=== PATIENT | male | born 1945 | race Two or more races ===

== ENCOUNTER → 2017-12-12 | Outpatient (CLI) | payer OTHER ==
[~2017-12-12] MED LIST: ALBU1.25 NEB; ALEN70TA5 PO; AMPH50VI INH; ASCO500T7 PO; ASPI-682 PO; ATOR40TA PO; AZIT250T89 PO; CALC-141 PO; CHOL2000 PO; MAGN500T PO; METH4TAB PO; METO25TA35 PO; MULT-257 PO; OMEP-110 PO; PRED5TAB PO; SULF-169 PO; TACR0.5C4 PO; TACR5CAP4 PO; iron sulfate PO
== END | disposition home or self-care (01) ==
LOC: CFH 14:53
PROVIDERS: ATTEND Nurse Practitioner
DX: J98.11 Atelectasis (principal); R91.8 Other nonspecific abnormal finding of lung field; Z94.2 Lung transplant status
CPT/HCPCS: 71250

== ENCOUNTER → 2018-01-05 | Outpatient (CLI) | payer OTHER | END | disposition home or self-care (01) | LOC: RAD 16:23 | PROVIDERS: ATTEND Registered Nurse | DX: M25.60 Stiffness of unspecified joint, not elsewhere classified (principal); M79.604 Pain in right leg; R60.0 Localized edema ==

== ENCOUNTER 2018-04-25 19:03 | Emergency (ER) | payer OTHER ==
[~2018-04-25] VITALS: Ht 170.2 cm; Wt 61.8 kg
[2018-04-25 19:33] LABS: BASOPHILS # (AUTO) 0.02 x10^3/uL (0-0.1); BASOPHILS % (AUTO) 0 % (0-1); EOSINOPHILS # (AUTO) 0.07 x10^3/uL (0-0.4); EOSINOPHILS % (AUTO) 1 % (1-7); LYMPHOCYTES % (AUTO) 21 % (22-44); MD NO; MEAN CORPUSCULAR HEMOGLOBIN 31.7 pg (27.5-34.5); MEAN CORPUSCULAR HGB CONC 33.9 g/dL (33.2-36.2); MEAN CORPUSCULAR VOLUME 93.3 fL (81-97); MEAN PLATELET VOLUME 8.9 fL (7.4-10.4); MONOCYTES # (AUTO) 0.64 x10^3/uL (0.2-0.8); MONOCYTES % (AUTO) 9 % (2-9); NEUTROPHILS # (AUTO) 4.92 x10^3/uL (1.8-6.8); NEUTROPHILS % (AUTO) 69 % (42-75); PLATELET COUNT 309 x10^3/uL (130-400); RED BLOOD COUNT 4.14 x10^6/uL (4.38-5.82); RED CELL DISTRIBUTION WIDTH 14.1 % (9.4-14.8)
[2018-04-25 19:42] LABS: ALANINE AMINOTRANSFERASE 115 U/L (12-78); ALBUMIN 3.7 g/dL (3.4-5.0); ANION GAP 8 mmol/L (5-15); CALCIUM 9.3 mg/dL (8.5-10.1); CHLORIDE 99 mmol/L (98-107); CREATININE 1.47 mg/dL (0.7-1.3)
[2018-04-25 19:45] LABS: ALKALINE PHOSPHATASE 311 U/L (45-117); BILIRUBIN,TOTAL 1.4 mg/dL (0.2-1.0); TOTAL PROTEIN 8.1 g/dL (6.4-8.2)
[2018-04-25 20:57] VITALS: BP 139/82
== END 2018-04-25 21:19 | disposition home or self-care (01) ==
LOC: ED 21:13
DX: K80.20 Calculus of gallbladder without cholecystitis without obstruction (principal); E11.65 Type 2 diabetes mellitus with hyperglycemia; R94.5 Abnormal results of liver function studies; E78.5 Hyperlipidemia, unspecified; I10 Essential (primary) hypertension; Z94.2 Lung transplant status
CPT/HCPCS: 36415; 76700; 80053; 83690; 85025; 99285